=== PATIENT | male | born 1950 | race Caucasian/White ===

== ENCOUNTER → 2017-03-21 | Outpatient (CLI) | payer MEDICARE ==
[~2017-03-21] MED LIST: APIX5TAB PO; CALC500T37 PO; COMMODE 3-IN-11 MIS; CPMMACHINE; DILT120T PO; FISH1000 PO; GEMF600 PO; LISI-357 PO; MULT-207 PO; NORC5TAB PO; OMEGCAP PO; OMEP20TA39 PO; PANT20 PO; SAW450CA2 PO; SAWPOW; TAB-TAB PO; WALKER WHEELS/F1 MIS
== END ==
LOC: CPRE 10:48
PROVIDERS: ATTEND Orthopaedic Surgery
DX: Z01.818 Encounter for other preprocedural examination (principal)

== ENCOUNTER 2017-04-02 05:25 | Inpatient (IN) | payer MEDICARE ==
[~2017-04-02] VITALS: Ht 172.7 cm; Wt 79.1 kg
[~2017-04-02 05:25] MED LIST changes: -COMMODE 3-IN-11 MIS; -CPMMACHINE; -NORC5TAB PO; -WALKER WHEELS/F1 MIS
[2017-04-02] MEDS ORDERED: METOPROLOL TARTRATE 25 MG TAB PO PRN (06:00)
[2017-04-02] MEDS ORDERED: SODIUM CHLORID 0.9% 500 ML IV PRN (06:00)
[2017-04-02] MEDS ORDERED: POVIDONE IODINE 5% (ANTISEPSIS KIT) 4 APPLICATIONS EACH NARE PRN (06:00)
[2017-04-02] MEDS ORDERED: LACTATED RINGER'S 1000 ML IV PRN (06:00)
[2017-04-02] MEDS ORDERED: CHLORHEXIDINE GLUCONATE 2 % 1 PACK (2 CLOTHS) TOPICAL PRN (06:00)
[2017-04-02] MEDS ORDERED: ceFAZolin 2 GM PREMIX 50 ML IV SCH (06:00)
[2017-04-02] MEDS ORDERED: POVIDONE IODINE 7.5% SCRUB 118 ML BOTTLE TOPICAL SCH (06:00)
[2017-04-02] MEDS ORDERED: VANCOMYCIN 1000 MG/NS 250 ML (for <70 kg) IV SCH ×2 (06:00)
[2017-04-02] MEDS ORDERED: DEXAMETHASONE SOD PHOS 20 MG/5 ML VIAL IV SCH (06:15)
[2017-04-02] MEDS ORDERED: SODIUM CHLOR 0.9% 250 ML INJ 250 ML ONE (06:56)
--- NOTE | 2017-04-02 06:57 | HHI.DCPOC ---
Discharge Care Plan Diagnosis: (1) Primary localized osteoarthrosis, lower leg (2) Status post total knee replacement, left Your Health Problems Are: Difficulty with ADL Goals to Promote Your Health * To prevent worsening of your condition and complications * To maintain your health at the optimal level Directions to Meet Your Goals Take your medications as prescribed Follow your dietary instruction Follow activity as directed Keep your appointments as scheduled Take your immunizations and boosters as scheduled If your symptoms worsen call your PCP, if no PCP go to Urgent Care Center or Emergency Room Smoking is Dangerous to Your Health. Avoid second hand smoke Call the 24-hour hour crisis hotline for domestic abuse at José Manuel Maxwell Apr 02, 2017 06:57
--- NOTE | 2017-04-02 06:58 | HHI.FF ---
Face to Face Verification Diagnosis: (1) Primary localized osteoarthrosis, lower leg (2) Status post total knee replacement, left Physical Therapy Gait training, Transfer training, bed to chair Knee: Total knee Left LE Weight Bearing: WB as tolerated Left LE Range of Motion: Active ROM Nursing Nursing: Millicent teaching Additional Instructions First dressing change will be in the office I have seen patient Nba Dennis on 04/02/17. My clinical findings support the need for the requested home health care services because: Limited ability to care for self High risk of falls I certify that my clinical findings support that this patient is homebound because: Post-op weakness Unsteady gait/balance José Manuel Maxwell Apr 02, 2017 06:58
[2017-04-02] MEDS ORDERED: CPMMACHINE (07:00)
[2017-04-02] MEDS ORDERED: COMMODE 3-IN-11 MIS (07:00)
[2017-04-02] MEDS ORDERED: WALKER WHEELS/F1 MIS (07:00)
[2017-04-02] MEDS ORDERED: GENTAMICIN SULFATE 80 MG/2 ML VIAL ONE (07:06)
[2017-04-02] MEDS ORDERED: ROPIVACAINE 0.5% PF INJ 30 ML VIAL ONE (07:13)
[2017-04-02] MEDS ORDERED: ACETAMINOPHEN 1000 MG/100 ML 100 ML IV ONE (07:13)
[2017-04-02] MEDS ORDERED: BUPIVACAINE LIPOSOME PF 1.3% 20 ML VIAL ONE (07:14)
[2017-04-02] MEDS ORDERED: BUPIVACAINE HCL PF 0.5% 30 ML VIAL ONE (08:18)
[2017-04-02] MEDS ORDERED: ROPIVACAINE PERI-ARTICULAR INJECTION. P-ARTICULR SCH ×5 (08:30)
[2017-04-02] MEDS ORDERED: SODIUM CHLORIDE 0.9% IV SCH ×2 (08:30→11:30)
[2017-04-02] MEDS ORDERED: TRANEXAMIC ACID IV SCH ×2 (08:30→11:30)
--- NOTE | 2017-04-02 10:14 | PD.OP ---
cc: Dm Flores MD Operative Report Date of Surgery: Apr 02, 2017 Preoperative Diagnosis: left knee severe osteoarthritis Postoperative Diagnosis: Same Procedure: Left total knee arthroplasty Anesthesia: Gen. Surgeon: Dm Flores Supervisor Dimension Warehouse(s): GOLDIE Azevedo The surgical procedure was assisted by my Advanced Registered Nurse Practitioner. My PASSENGER SOLICITOR presence was necessary throughout this case for the manipulation and positioning of the surgical extremity. My PASSENGER SOLICITOR was assisting me throughout the duration of this procedure. The skill set of an Advance Registered Nurse Practitioner was medically necessary to complete this procedure. During the surgical case, the salesperson surgical appliances was working at the back table and the Advance Registered Nurse Practitioner was directly assisting me. Operation and Findings: IMPLANTS: DePuy Attune: Patella: size 32. Femur, posterior stabilized size 7. Tibia, rotating platform size 7. Tibial insert, rotating platform, posterior stabilized size 8 mm thickness. ESTIMATED BLOOD LOSS: 150 cc TOURNIQUET TIME: 40 minutes at 250 mmHg pressure. JUSTIFICATION FOR PROCEDURE: The patient has end-stage osteoarthritis to the knee. There is an attached conservative measures pathway form in the chart that describes the nonoperative measures that were undertaken prior to consideration of surgical management. The patient understood the risks and benefits of surgical management. See my office notes for further details PROCEDURE: The patient was brought back to the operative theatre. Adequate anesthesia was obtained. The patient received intravenous vancomycin and Ancef. The lower extremity was prepped and draped in the usual sterile fashion.The leg was exsanguinated, the tourniquet was raised. A standard anterior incision was performed followed by medial parapatellar arthrotomy was performed. End-stage arthritis was identified. Osteotomy of the patella was performed. We drilled holes for the patella. We trialed the patella component. We placed an intramedullary guide into the distal femur. We ultimately resected 14 mm off of the distal femur in 5 degrees of valgus. The remnants of the ACL and PCL were resected. Osteotomy of the proximal tibia was performed, resecting 5 mm off of the medial side. This was done with 3 degrees of posterior slope using an extramedullary guide. The distal end of the guide was placed in the mid aspect of the ankle. The femur was sized, and four chamfer cuts were completed in 3 of external rotation. We then cut the central box in the distal femur to replace the PCL. We resected the remnants of the menisci and removed osteophytes off of the femur and tibia. We then trialed the knee. We punched the tibia for the keel, and then used standard technique to cement in components. Excess cement was removed. We trialed the knee again and the final polyethylene thickness was chosen to provide extension to 0 degrees, and flexion of 140 degrees to gravity. The ligaments were appropriately balanced. Lateral release was necessary to obtain excellent patellofemoral tracking. The tourniquet was released and adequate hemostasis was obtained. An intra- articular injection of a ropivacaine cocktail was injected. The posterior knee was inspected for excess cement, which was removed. The final polyethylene was put into position after thorough irrigation. We then closed deep fascia with a #2 Stratafix followed by skin with 2-0 Vicryl followed by nicol. Postop plan is to weight-bear as tolerated. DVT prophylaxis will be performed with YAN Brennan, early mobilization, and resuming Eliquis at 2.5 mg by mouth twice a day initially with then resuming full outpatient dose of Eliquis per the patient. Dm Flores MD Apr 02, 2017 10:13
[2017-04-02] MEDS ORDERED: MAGNESIUM HYDROXIDE SUSP 30 ML CUP PO PRN (10:15)
[2017-04-02] MEDS ORDERED: Post-op Orders (for Pharmacy) MISC XX ONE (10:15)
[2017-04-02] MEDS ORDERED: ZOLPIDEM TARTRATE 5 MG TAB PO PRN (10:15)
[2017-04-02] MEDS ORDERED: NORC5TAB PO (10:15)
[2017-04-02] MEDS ORDERED: SODIUM CHLORIDE 0.9% FLUSH 5 ML FLUSH IVF PRN (10:15)
[2017-04-02] MEDS ORDERED: ONDANSETRON HCL 4 MG/2 ML VIAL IVP PRN (10:15)
[2017-04-02] MEDS ORDERED: BISACODYL 10 MG SUPP RECTAL PRN (10:15)
[2017-04-02] MEDS ORDERED: NALOXONE HCL 0.4 MG/ML AMP IV PUSH PRN (10:15)
[2017-04-02] MEDS ORDERED: ALUMINUM/MAGNESIUM/SIMETH 30 ML CUP PO PRN (10:15)
[2017-04-02] MEDS ORDERED: diphenhydrAMINE HCL 50 MG/ML VIAL IV PUSH PRN (10:15)
[2017-04-02] MEDS: SODIUM CHLOR 0.9% 1000 ML INJ 1,000 ML IV SCH ×2 (10:55→21:03)
[2017-04-02] MEDS ORDERED: MORPHINE SULFATE 2 MG/ML INJ IV PUSH PRN (11:00)
[2017-04-02] MEDS ORDERED: DO NOT ADM ANY ANTICOAGULANT DRUGS PRN (11:30)
[2017-04-02] MEDS ORDERED: *morphine SULFATE 8 MG/ML PERIprocedure ONLY ONE (11:30)
--- NOTE | 2017-04-02 11:58 | RADRPT ---
EXAM DATE/TIME: 04/02/2017 11:21 [facility] COMPARISON: No previous studies available for comparison. INDICATIONS : Post op left knee surgery. MEDICAL HISTORY : None. SURGICAL HISTORY : None. ENCOUNTER: Initial ACUITY: 1 day PAIN SCORE: 0/10 LOCATION: Left knee FINDINGS: AP and lateral views of the knee following arthroplasty reveals a prosthesis in anatomic alignment. F racture is not appreciated. Surgical drain is evident CONCLUSION: Status post total knee arthroplasty. Jarett Juárez MD FACR Board Certified Radiologist. This report was verified electronically.
[2017-04-02] MEDS ORDERED: ROCURONIUM INJ 50 MG/5 ML SYRINGE IV PUSH ONE (12:00)
[2017-04-02] MEDS ORDERED: NEOSTIGMINE 3 MG/3 ML SYR IV ONE (12:00)
[2017-04-02] MEDS ORDERED: LIDOCAINE HCL 1% PF 5 ML SYRINGE OTHER ONE (12:00)
[2017-04-02] MEDS ORDERED: MORPHINE SULFATE 4 MG/ML INJ IV ONE (12:00)
[2017-04-02] MEDS ORDERED: PROPOFOL 200 MG/20 ML AMP IV ONE (12:00)
[2017-04-02] MEDS ORDERED: GLYCOPYRROLATE 1 MG/5 ML SYRINGE IV PUSH ONE (12:00)
[2017-04-02] MEDS ORDERED: MIDAZOLAM HCL 2 MG/2 ML VIAL IV ONE (12:00)
[2017-04-02] MEDS ORDERED: ONDANSETRON HCL 4 MG/2 ML VIAL IV PUSH ONE (12:00)
[2017-04-02 13:55] VITALS: BP 111/65; PULSE 67; RESP 18; TEMP 97; O2SAT 96
--- NOTE | 2017-04-02 14:31 | PD.CONS ---
HPI Service [facility] Hospitalists Consult Requested By Primary Care Physician Iván Peres MD Diagnoses: History of Present Illness deniess recent symptoms left total knee today Review of Systems Except as stated in HPI: all other systems reviewed are Neg Past Family Social History Allergies: Coded Allergies: No Known Allergies (Verified Allergy, Unknown, 04/02/17) Past Medical History htn gerd afib chronic anticoagulation on eliquis- last dose was friday hepatitis A in 1978 Past Surgical History left total knee bilateral knee meniscus sx hernia sx 2006 left inguinal and umbilical Family History mother- heart issues maternal uncle angina Social History never smoked occasional drinker no drugs Physical Exam Vital Signs Vital Signs Date Time Temp Pulse Resp B/P (MAP) Pulse Ox O2 Delivery O2 Flow Rate FiO2 04/02/17 13:00 98.6 91 20 131/80 (97) 98 Nasal Cannula 2 04/02/17 12:00 78 20 130/79 (96) 98 04/02/17 11:45 75 10 129/80 (96) 96 04/02/17 11:30 83 12 150/84 (106) 92 04/02/17 11:15 81 10 139/79 (99) 96 04/02/17 11:00 80 12 132/75 (94) 100 Nasal Cannula 2 04/02/17 10:45 78 13 133/75 (94) 97 Simple Mask 6 04/02/17 10:38 98.1 77 13 132/68 (89) 97 Nasal Cannula 6 Physical Exam GENERAL: This is a well-nourished, well-developed patient, in no apparent distress. SKIN: No rashes, ecchymoses or lesions. Cool and dry. HEAD: Atraumatic. Normocephalic. No temporal or scalp tenderness. EYES: Pupils equal round and reactive. Extraocular motions intact. No scleral icterus. No injection or drainage. ENT: Nose without bleeding, purulent drainage or septal hematoma. Throat without erythema, tonsillar hypertrophy or exudate. Uvula midline. Airway patent. NECK: Trachea midline. No JVD or lymphadenopathy. Supple, nontender, no meningeal signs. CARDIOVASCULAR: Regular rate and rhythm without murmurs, gallops, or rubs. RESPIRATORY: Clear to auscultation. Breath sounds equal bilaterally. No wheezes , rales, or rhonchi. GASTROINTESTINAL: Abdomen soft, non-tender, nondistended. No hepato-splenomegaly , or palpable masses. No guarding. MUSCULOSKELETAL: Extremities without clubbing, cyanosis, or edema. No joint tenderness, effusion, or edema noted. No calf tenderness. Negative Homans sign bilaterally. NEUROLOGICAL: Awake and alert. Cranial nerves II through XII intact. Motor and sensory grossly within normal limits. Five out of 5 muscle strength in all muscle groups. Normal speech. Shayan Espino MD Apr 02, 2017 14:31
[2017-04-02 16:00] VITALS: BP 141/65; RESP 18; TEMP 95.7; O2SAT 99
[2017-04-02] MEDS: GEMFIBROZIL 600 MG TAB PO SCH (17:51)
[2017-04-02] MEDS: ACETAMINOPHEN/HYDROcodone 325 MG/5 MG TAB PO PRN ×2 (17:51→22:21)
[2017-04-02 19:00] VITALS: BP 109/71; PULSE 80; RESP 17; TEMP 96.4; O2SAT 100
[2017-04-02] MEDS: SODIUM CHLORIDE 0.9% FLUSH 5 ML FLUSH IVF SCH (21:04)
[2017-04-02] MEDS: DILTIAZEM HCL 60 MG TAB PO SCH (21:04)
[2017-04-03] VITALS: BP 118/69; PULSE 76; RESP 18; TEMP 96; O2SAT 99
[2017-04-03 04:00] VITALS: BP 118/69; PULSE 74; RESP 17; TEMP 96.1; O2SAT 97
[2017-04-03] MEDS: GEMFIBROZIL 600 MG TAB PO SCH ×2 (06:38→15:26)
[2017-04-03] MEDS: SODIUM CHLOR 0.9% 1000 ML INJ 1,000 ML IV SCH ×2 (06:40→16:00)
[2017-04-03] MEDS ORDERED: DEXAMETHASONE SOD PHOS 20 MG/5 ML VIAL IV ONE (07:45)
[2017-04-03 08:00] VITALS: BP 121/70; PULSE 68; RESP 16; TEMP 96.7; O2SAT 97
[2017-04-03] MEDS: DILTIAZEM HCL 60 MG TAB PO SCH (08:00)
[2017-04-03] MEDS: SODIUM CHLORIDE 0.9% FLUSH 5 ML FLUSH IVF SCH (08:00)
[2017-04-03] MEDS: ACETAMINOPHEN/HYDROcodone 325 MG/5 MG TAB PO PRN ×2 (08:40→15:26)
[2017-04-03 08:50] LABS: HEMATOCRIT 34.2 % (39.0-51.0); MEAN CELL VOLUME 92.2 FL (80.0-100.0); MEAN CORPUSCULAR HGB CONC 33.7 % (32.0-36.0); PLATELET COUNT 187 TH/MM3 (150-450); RED BLOOD COUNT 3.71 MIL/MM3 (4.50-5.90); RED CELL DISTRIBUTION WIDTH 12.7 % (11.6-17.2); REVIEW FLAG FINAL; WHITE BLOOD COUNT 12.1 TH/MM3 (4.0-11.0)
--- NOTE | 2017-04-03 08:50 | HHI.PR ---
Subjective Remarks Patient in the bed appears in nad. Pain is controlled by meds. No fever or chills. No n/v/d. Has constipation. Objective Vitals Vital Signs Date Time Temp Pulse Resp B/P (MAP) Pulse Ox O2 Delivery O2 Flow Rate FiO2 04/03/17 04:00 96.1 74 17 118/69 (85) 97 04/03/17 00:00 96.0 76 18 118/69 (85) 99 04/02/17 20:25 Nasal Cannula 2.00 04/02/17 19:00 96.4 80 17 109/71 (84) 100 04/02/17 16:00 95.7 18 141/65 (90) 99 04/02/17 13:55 97.0 67 18 111/65 (80) 96 04/02/17 13:00 98.6 91 20 131/80 (97) 98 Nasal Cannula 2 04/02/17 12:00 78 20 130/79 (96) 98 04/02/17 11:45 75 10 129/80 (96) 96 04/02/17 11:30 83 12 150/84 (106) 92 04/02/17 11:15 81 10 139/79 (99) 96 04/02/17 11:00 80 12 132/75 (94) 100 Nasal Cannula 2 04/02/17 10:45 78 13 133/75 (94) 97 Simple Mask 6 04/02/17 10:38 98.1 77 13 132/68 (89) 97 Nasal Cannula 6 I/O 04/02/17 04/02/17 04/02/17 04/03/17 04/03/17 04/03/17 07:00 15:00 23:00 07:00 15:00 23:00 Intake Total 1027.8 ml 1282 ml 925 ml Output Total 250 ml 500 ml 900 ml Balance 777.8 ml 782 ml 25 ml Intake Oral 120 ml 480 ml 480 ml IV Total 107.8 ml 802 ml 445 ml Other 800 ml Output Urine Total 100 ml 500 ml 900 ml Estimated Blood Loss 150 ml # Voids 0 # Bowel Movements 0 0 0 Imaging Last Impressions Knee X-Ray 04/02/17 1007 Signed Impressions: Service Date/Time: Sunday, April 02, 2017 11:21 - CONCLUSION: Status post total knee arthroplasty. Jarett Juárez MD Objective Remarks GENERAL: This is a well-nourished, well-developed patient, in no apparent distress. CARDIOVASCULAR: Regular rate and rhythm without murmurs, gallops, or rubs. RESPIRATORY: Clear to auscultation. Breath sounds equal bilaterally. No wheezes , rales, or rhonchi. GASTROINTESTINAL: Abdomen soft, non-tender, nondistended. No hepato-splenomegaly , or palpable masses. No guarding. MUSCULOSKELETAL: Left knee with minimal edema dressing c/d/i. Extremities without clubbing, cyanosis, or edema. No calf tenderness. Negative Homans sign bilaterally. NEUROLOGICAL: Awake and alert. Cranial nerves II through XII intact. Motor and sensory grossly within normal limits. Five out of 5 muscle strength in all muscle groups. Normal speech. A/P Assessment and Plan Left knee severe osteoarthritis S/p Left total knee arthroplasty buy Dr Aggarwal 04/02/17 Management per ortho Pain meds per pain scale. Chronic medical problems Afib, HLD, GERD, appears stable restart home meds. Anticoagulation per surgeon. Monitor closely. DVT ppx per surgeon . He is on Eliquis for Afib Melissa Grewal MD Apr 03, 2017 08:50
[2017-04-03] MEDS ORDERED: NON-FORMULARY DRUG (Calcium Ascorbate 500 MG) PO SCH (09:00)
[2017-04-03] MEDS ORDERED: PANTOPRAZOLE SOD 20 MG DELAYED RELEASE TAB PO SCH (09:00)
[2017-04-03] MEDS ORDERED: APIXABAN 2.5 MG TABLET PO SCH (09:00)
[2017-04-03] MEDS ORDERED: PNEUMOCOCCAL POLYVALENT INJ 25 MCG/0.5 ML SYR IM ONE (10:00)
[2017-04-03 12:00] VITALS: BP 121/69; PULSE 58; RESP 16; TEMP 97.2; O2SAT 99
--- NOTE | 2017-04-03 12:14 | PD.ORT.PN ---
Subjective Post Op Day #: 1 Subjective Remarks Patient is OOB in chair with minimal pain to the left knee. The patient has been ambulatory and feels he is feeling well enough to go home today with home health. Objective Vitals Vital Signs Date Time Temp Pulse Resp B/P (MAP) Pulse Ox O2 Delivery O2 Flow Rate FiO2 04/03/17 08:00 96.7 68 16 121/70 (87) 97 04/03/17 04:00 96.1 74 17 118/69 (85) 97 04/03/17 00:00 96.0 76 18 118/69 (85) 99 04/02/17 20:25 Nasal Cannula 2.00 04/02/17 19:00 96.4 80 17 109/71 (84) 100 04/02/17 16:00 95.7 18 141/65 (90) 99 04/02/17 13:55 97.0 67 18 111/65 (80) 96 04/02/17 13:00 98.6 91 20 131/80 (97) 98 Nasal Cannula 2 I/O 04/02/17 04/02/17 04/02/17 04/03/17 04/03/17 04/03/17 07:00 15:00 23:00 07:00 15:00 23:00 Intake Total 1027.8 ml 1282 ml 925 ml Output Total 250 ml 500 ml 900 ml Balance 777.8 ml 782 ml 25 ml Intake Oral 120 ml 480 ml 480 ml IV Total 107.8 ml 802 ml 445 ml Other 800 ml Output Urine Total 100 ml 500 ml 900 ml Estimated Blood Loss 150 ml # Voids 0 # Bowel Movements 0 0 0 Result Diagram: 04/03/17 0635 Procedures Left TKA Objective Remarks The patient's dressing is C/D/I. EHL/TA/G intact. 2+ pedal pulse. Calf is soft and nontender. Minimal swelling. + SILT. Assessment & Plan Ortho Post Op Day #: 1 Problem List: Assessment and Plan POD #1: Left TKA 1. WBAT LLE 2. Eliquis 2.5 mg BID today and then transition back to Eliquis 5 mg BID starting tomorrow 3. Ice to the left knee PRN 4. Maintain dressing until f/u in the office. 5. Stable for discharge home with home health today per ortho 6. F/U in the office with Dr. Flores or GOLDIE Schaefer as previously scheduled. José Manuel Maxwell Apr 03, 2017 12:14
[2017-04-03] MEDS ORDERED: MULTIVITAMINS/MINERALS THERAPEUTIC TAB PO SCH (21:00)
[2017-04-03] MEDS ORDERED: DOCUSATE SODIUM 100 MG CAP PO SCH (21:00)
== END 2017-04-03 16:43 | disposition home health service (06) | DRG 470 ==
LOC: HSDI 05:25 → N06A 14:01
PROVIDERS: ADMIT Orthopaedic Surgery; ATTEND Orthopaedic Surgery
PROC: 0SRD0J9 Replacement of Left Knee Joint with Synthetic Substitute, Cemented, Open Approach (ICD-10-PCS; principal; 2017-04-02 08:30)
DX: M17.12 Unilateral primary osteoarthritis, left knee (principal); I48.91 Unspecified atrial fibrillation; I10 Essential (primary) hypertension; K21.9 Gastro-esophageal reflux disease without esophagitis; E78.5 Hyperlipidemia, unspecified; K59.00 Constipation, unspecified; Z79.01 Long term (current) use of anticoagulants; Z23 Encounter for immunization
CPT/HCPCS: 73560; 85027; 86850; 86900; 86901; 90471; 90732; 94150; C9290; G0009; J0131; J0690; J0735; J1100; J1580; J1885; J2250; J2270; J2405; J2710; J2795; J3010; J3370; J7030; J7050; J7120

== ENCOUNTER 2018-03-04 06:55 | Inpatient (IN) ==
[2018-03-04] MEDS ORDERED: Dexamethasone Inj 20 MG/5 ML Vial IV.PUSH ONE (07:21)
[2018-03-04] MEDS ORDERED: Metoprolol Tartrate 25 MG Tablet PO ONE (07:28)
[2018-03-04] MEDS ORDERED: Chlorhexidine Gluconate 2% 1 Pack (2 Cloths) TOPICAL ONE (07:28)
[2018-03-04] MEDS ORDERED: Chlorhexidine 4% Topical 120 APPLIC/120 ML Bottle TOPICAL SCH (07:30)
[2018-03-04] MEDS ORDERED: Sodium Chlor 0.9% Inj 500 ML IV.SIG SCH (08:00)
[2018-03-04] MEDS ORDERED: Vancomycin Inj 1,000 MG in Sodium Chlor 0.9% Inj 250 ML IV.SIG SCH (08:00)
[2018-03-04] MEDS ORDERED: ceFAZolin 2 GM Premix Inj 2 GM/50 ML PIGGYBACK IV.SIG SCH (08:00)
[2018-03-04] MEDS ORDERED: Bupivacaine Liposomal PF 1.3% Inj 20 ML Vial ONE (08:03)
[2018-03-04] MEDS ORDERED: Bupivacaine/Dextrose 0.75% Inj 2 ML Ampul ONE (09:32)
[2018-03-04] MEDS ORDERED: Propofol Inj 500 MG/50 ML Vial ONE (09:39)
[2018-03-04] MEDS ORDERED: Glycopyrrolate Inj 1 MG/5 ML Syringe IV.PUSH ONE (09:42)
[2018-03-04] MEDS ORDERED: Phenylephrine/NS 1000 MCG/10ML Syringe IV.PUSH ONE (09:42)
[2018-03-04] MEDS ORDERED: Lidocaine PF 1% Inj 5 ML Syringe OTHER ONE (09:42)
[2018-03-04] MEDS ORDERED: Neostigmine Inj 5 MG/5 ML Syringe IV.PUSH ONE (09:42)
[2018-03-04] MEDS ORDERED: TRANEXAMIC ACID IV.SIG SCH ×2 (10:00→13:00)
[2018-03-04] MEDS ORDERED: Sodium Chlor 0.9% Inj 73.07 ML, Ropivacaine 0.5% PF Inj 24.63 ML, Ketorolac Inj 30 MG, ... P-ARTICULR SCH ×5 (10:00)
[2018-03-04] MEDS ORDERED: SODIUM CHLOR 0.9% IV.SIG SCH ×2 (10:00→13:00)
[2018-03-04] MEDS ORDERED: Post-op Orders (for Pharmacy) OTHER STA (11:43)
[2018-03-04] MEDS ORDERED: Bisacodyl 10 MG Supp RECTAL PRN (11:43)
[2018-03-04] MEDS ORDERED: Morphine Sulfate Inj 2 MG/ML Vial IV.PUSH PRN (11:43)
[2018-03-04] MEDS ORDERED: Aluminum/Magnesium/Simethacone Susp 30 ML UDC PO PRN (11:43)
--- NOTE | 2018-03-04 11:48 | P.OP ---
- Preoperative Diagnosis (1) Osteoarthritis of right knee - Postoperative Diagnosis (1) Osteoarthritis of right knee Date of procedure: 03/04/18 Procedure: Right total knee arthroplasty [facility] Surgeon: Dm Flores MD Quality Project Manager: GOLDIE Azevedo The surgical procedure was assisted by my Advanced Registered Nurse Practitioner. My HR PAYROLL COORDINATOR presence was necessary throughout this case for the manipulation and positioning of the surgical extremity. My HR PAYROLL COORDINATOR was assisting me throughout the duration of this procedure. The skill set of an Advance Registered Nurse Practitioner was medically necessary to complete this procedure. During the surgical case, the neurodiagnostic technician was working at the back table and the Advance Registered Nurse Practitioner was directly assisting me. Operation and Findings: IMPLANTS: DePuy Attune: Patella: size 35. Femur, posterior stabilized size 7. Tibia, rotating platform size 7. Tibial insert, rotating platform, posterior stabilized size 5 mm thickness. ESTIMATED BLOOD LOSS: 150 cc TOURNIQUET TIME: 44 minutes at 250 mmHg pressure. JUSTIFICATION FOR PROCEDURE: The patient has end-stage osteoarthritis to the knee. There is an attached conservative measures pathway form in the chart that describes the nonoperative measures that were undertaken prior to consideration of surgical management. The patient understood the risks and benefits of surgical management. See my office notes for further details PROCEDURE: The patient was brought back to the operative theatre. Adequate anesthesia was obtained. The patient received intravenous vancomycin and Ancef. The lower extremity was prepped and draped in the usual sterile fashion.The leg was exsanguinated, the tourniquet was raised. A standard anterior incision was performed followed by medial parapatellar arthrotomy was performed. End-stage arthritis was identified. Osteotomy of the patella was performed. We drilled holes for the patella. We trialed the patella component. We placed an intramedullary guide into the distal femur. We ultimately resected 13 mm off of the distal femur in 5 degrees of valgus. The remnants of the ACL and PCL were resected. Osteotomy of the proximal tibia was performed, resecting 7 mm off of the medial side. This was done with 3 degrees of posterior slope using an extramedullary guide. The distal end of the guide was placed in the mid aspect of the ankle. The femur was sized, and four chamfer cuts were completed in 3 of external rotation. We then cut the central box in the distal femur to replace the PCL. We resected the remnants of the menisci and removed osteophytes off of the femur and tibia. We then trialed the knee. We punched the tibia for the keel, and then used standard technique to cement in components. Excess cement was removed. We trialed the knee again and the final polyethylene thickness was chosen to provide extension to 0 degrees, and flexion of 140 degrees to gravity. The ligaments were appropriately balanced. Lateral release was necessary to obtain excellent patellofemoral tracking. The tourniquet was released and adequate hemostasis was obtained. An intra- articular injection of a ropivacaine cocktail was injected. The posterior knee was inspected for excess cement, which was removed. The final polyethylene was put into position after thorough irrigation. We then closed deep fascia with a #2 Stratafix followed by skin with 2-0 Vicryl followed by Dermabond dressing. Postop plan is to weight-bear as tolerated. DVT prophylaxis will be performed with SCDs, YAN hurtado, early mobilization, and Eliquis 2.5 twice daily while in the hospital with resumption of outpatient dose of 5 mg twice daily after discharge.
[2018-03-04] MEDS ORDERED: fentaNYL Citrate Inj 100 MCG/2 ML Ampul ONE (12:14)
--- NOTE | 2018-03-04 12:25 | P.DCO ---
- Physical Therapy Physical Therapy: Gait training, Transfer training, bed to chair Knee: Total knee Right Lower Extremity Weight Bearing: Weight bearing as tolerated Right Lower Extremity Range of Motion: Active ROM - Nursing Dressing changes: Do not change dressing Additional instructions: First dressing change in the office - Certification Need for Home Health services: I have seen patient Nba Dennis on 03/04/18. My clinical findings support the need for the requested home health care services because: Need for Home Health Services: Limited ability to care for self, High risk of falls Homebound Certification: I certify that my clinical findings support that this patient is homebound because: Homebound Certification: Post-op weakness, Unsteady gait/balance
[2018-03-04] MEDS: Sod Chloride 0.9% Inj 1,000 ML IV.CONT SCH (12:33)
[2018-03-04] MEDS ORDERED: *morphine SULFATE 4 MG/ML PERIprocedure ONLY ONE (13:02)
--- NOTE | 2018-03-04 13:05 | XR ---
EXAM DATE: 03/04/2018 11:43 AM EDT AGE/SEX: 67 years / Male INDICATIONS: Post op right total knee replacement. CLINICAL DATA: This is the patient's initial encounter. Patient reports that signs and symptoms have been present for 1 day and indicates a pain score of 5/10. MEDICAL/SURGICAL HISTORY: None. None. COMPARISON: No prior exams available for comparison. FINDINGS: A total knee arthroplasty is present. The tibial and femoral components appear well seated. Prominent subcutaneous air is noted. No fractures. CONCLUSION: Postop right knee arthroplasty. Electronically signed by: Chris Strauss MD 03/04/2018 1:03 PM EDT
[2018-03-04] MEDS ORDERED: Atenolol 25 MG Tablet PO SCH (21:00)
[2018-03-04] MEDS ORDERED: Zolpidem Tartrate 5 MG Tablet PO PRN (21:00)
[2018-03-04] MEDS: Senna/Docusate Sodium 8.6/50 MG Tablet PO SCH (21:13)
[2018-03-04] MEDS: Multivitamin/Minerals Therapeutic Tablet PO SCH (21:14)
[2018-03-05] MEDS: Sod Chloride 0.9% Inj 1,000 ML IV.CONT SCH (05:34)
[2018-03-05 07:13] LABS: Hematocrit 32.8 % (39.0-51.0); Hemoglobin 11.1 gm/dL (13.0-17.0)
--- NOTE | 2018-03-05 07:14 | P.PNOP ---
Subjective Interval history: The patient is resting comfortably in bed in no acute distress. The patient reports mild discomfort to the right knee. The patient states he does want to go home today with home health. Physical Exam Vital signs: Vital Signs 03/04/18 07:59 03/04/18 08:22 03/04/18 12:10 Temperature 98.8 F 97.5 F L Pulse Rate 45 L 42 L 52 L Respiratory Rate 20 14 Blood Pressure 116/59 L 112/60 Pulse Oximetry 99 98 97 03/04/18 12:25 03/04/18 12:40 03/04/18 13:00 Temperature Pulse Rate 68 68 58 L Respiratory Rate 20 20 18 Blood Pressure 102/53 L 119/62 119/58 L Pulse Oximetry 98 98 96 03/04/18 14:00 03/04/18 15:00 03/04/18 16:00 Temperature Pulse Rate 58 L 58 L 71 Respiratory Rate 18 18 20 Blood Pressure 110/60 104/56 L 113/60 Pulse Oximetry 96 96 99 03/04/18 17:00 03/04/18 18:00 03/04/18 20:53 Temperature 98.0 F 97.5 F L Pulse Rate 73 82 87 Respiratory Rate 20 20 18 Blood Pressure 107/56 L 116/63 108/59 L Pulse Oximetry 97 96 96 03/04/18 22:58 03/05/18 03:30 Temperature 97.9 F 97.8 F Pulse Rate 69 63 Respiratory Rate 18 18 Blood Pressure 100/55 L 102/58 L Pulse Oximetry 95 96 Intake & Output 03/04/18 03/05/18 03/05/18 18:59 06:59 18:59 Intake Total 2065.76 / 2065.76 460 / 460 Output Total 250 / 250 Balance 1815.76 / 1815.76 460 / 460 Weight 78.471 kg 78.47 kg Intake: IV 1615.76 / 1615.76 100 / 100 LR 1000 mL Inj 1,000 ML @ 30 1000 / 1000 mls/hr IV.SIG .Q24H PRATIMA Rx#: [id number] Cyklokapron Inj 788 MG In NS 215.76 / 215.76 Inj 100 ML @ 200 mls/hr IV.SIG SOLDERER DIPPER PRATIMA Rx#:[id number] Vancomycin Inj 1,000 MG In NS 250 / 250 Inj 250 ML @ 250 mls/hr IV.SIG SOLDERER DIPPER PRATIMA Rx#:[id number] Ancef 2 GM Premix Inj 2 gm In 50 / 50 50 ml @ 100 mls/hr IV.SIG SOLDERER DIPPER PRATIMA Rx#:[id number] Ancef Inj 1,000 MG In NS Inj 100 / 100 100 / 100 100 ML @ 200 mls/hr IV.SIG Q6H PRATIMA Rx#:[id number] Oral 450 / 450 360 / 360 Output: Urine 100 / 100 Estimated Blood Loss 150 / 150 Other: # Voids 2 Date of Last Bowel Movement 03/03/18 # Bowel Movements 0 Weight On Admission 78.8 kg Narrative: The patient's dressing is clean, dry, and intact. EHL/TA/G are intact. 2+ pedal pulse. The patient's calf is soft and nontender. Sensation is intact to light touch distally. Results - Labs CBC & Chem 7: 03/05/18 06:41 Laboratory Results - last 24 hr 03/04/18 07:59 Blood Type A Positive Antibody Screen Negative - Imaging Impressions Knee X-Ray 03/04/18 11:43 CONCLUSION: Postop right knee arthroplasty. - Procedures Right total knee arthroplasty Assessment and Plan - Problem List (1) Status post total knee replacement, right Code(s): Z96.651 - Presence of right artificial knee joint Status: Acute (2) Primary localized osteoarthritis of right knee Code(s): M17.11 - Unilateral primary osteoarthritis, right knee Status: Acute - Assessment and Plan POD #1: [Right] total knee arthroplasty 1. Weightbearing as tolerated on [right] lower extremity. 2. Eliquis 2.5 mg twice a day while in the hospital and then resume Eliquis 5 mg twice a day when discharged home for DVT prophylaxis. 3. Ice as needed for swelling. 4. Stable per ortho for discharge to home health today. 5. The patient will follow up with Dr. Flores and/or GOLDIE Schaefer as previously scheduled.
--- NOTE | 2018-03-05 07:16 | P.DS ---
Date of admission: 03/04/18 06:55 Primary care physician: Iván Peres MD Attending physician on discharge: Dm Flores Anticipated date of discharge: 03/05/18 Brief History from admission: The patient was admitted to the hospital for severe osteoarthritis of the right knee to have a right total knee arthroplasty. DS: Diagnosis - Discharge Diagnosis (1) Status post total knee replacement, right Status: Acute (2) Primary localized osteoarthritis of right knee Status: Acute DS: Summary Hospital Course: The patient was admitted to the hospital for severe osteoarthritis of the [right ] knee to have a [right] total knee arthroplasty. The patient's surgery went well with no complication. The patient is on a [regular] diet. The patient's DVT prophylaxis includes use of Eliquis 2.5 mg twice a day while in the hospital and then resume his normal dose of Eliquis 5 mg twice a day when discharged home. The patient is weightbearing as tolerated. The patient was discharged [home with home health] and will follow up in the office with Dr. Flores and/or GOLDIE Schaefer as previously scheduled. - Time Spent with Patient Total time spent providing and/or coordinating discharge services: Greater than 30 minutes - Quality: VTE Deep Vein Thrombosis/Pulmonary Embolism Present on Admission: No Exam Vital signs: Vital Signs 03/04/18 07:59 03/04/18 08:22 03/04/18 12:10 Temperature 98.8 F 97.5 F L Pulse Rate 45 L 42 L 52 L Respiratory Rate 20 14 Blood Pressure 116/59 L 112/60 Pulse Oximetry 99 98 97 03/04/18 12:25 03/04/18 12:40 03/04/18 13:00 Temperature Pulse Rate 68 68 58 L Respiratory Rate 20 20 18 Blood Pressure 102/53 L 119/62 119/58 L Pulse Oximetry 98 98 96 03/04/18 14:00 03/04/18 15:00 03/04/18 16:00 Temperature Pulse Rate 58 L 58 L 71 Respiratory Rate 18 18 20 Blood Pressure 110/60 104/56 L 113/60 Pulse Oximetry 96 96 99 03/04/18 17:00 03/04/18 18:00 03/04/18 20:53 Temperature 98.0 F 97.5 F L Pulse Rate 73 82 87 Respiratory Rate 20 20 18 Blood Pressure 107/56 L 116/63 108/59 L Pulse Oximetry 97 96 96 03/04/18 22:58 03/05/18 03:30 Temperature 97.9 F 97.8 F Pulse Rate 69 63 Respiratory Rate 18 18 Blood Pressure 100/55 L 102/58 L Pulse Oximetry 95 96 Intake & Output 03/04/18 03/05/18 03/05/18 18:59 06:59 18:59 Intake Total 2065.76 / 2065.76 460 / 460 Output Total 250 / 250 Balance 1815.76 / 1815.76 460 / 460 Weight 78.471 kg 78.47 kg Intake: IV 1615.76 / 1615.76 100 / 100 LR 1000 mL Inj 1,000 ML @ 30 1000 / 1000 mls/hr IV.SIG .Q24H PRATIMA Rx#: [id number] Cyklokapron Inj 788 MG In NS 215.76 / 215.76 Inj 100 ML @ 200 mls/hr IV.SIG [employer] [facility]IMA Rx#:[id number] Vancomycin Inj 1,000 MG In NS 250 / 250 Inj 250 ML @ 250 mls/hr IV.SIG [employer] [facility]A Rx#:[id number] Ancef 2 GM Premix Inj 2 gm In 50 / 50 50 ml @ 100 mls/hr IV.SIG [employer] [facility] Rx#:[id number] Ancef Inj 1,000 MG In NS Inj 100 / 100 100 / 100 100 ML @ 200 mls/hr IV.SIG Q6H [facility] Rx#:[id number] Oral 450 / 450 360 / 360 Output: Urine 100 / 100 Estimated Blood Loss 150 / 150 Other: # Voids 2 Date of Last Bowel Movement 03/03/18 # Bowel Movements 0 Weight On Admission 78.8 kg Narrative: The patient's dressing is clean, dry, and intact. EHL/TA/G are intact. 2+ pedal pulse. The patient's calf is soft and nontender. Sensation is intact to light touch distally. Results Procedures completed during hospitalization: Right total knee arthroplasty Labs on day of discharge: Labs from last 24 hours 03/05/18 03/04/18 06:41 07:59 Hgb 11.1 L Hct 32.8 L Blood Type A Positive Antibody Screen Negative - Impressions ITS Impressions Knee X-Ray 03/04/18 11:43 CONCLUSION: Postop right knee arthroplasty. Discharge Plan - Discharge Disposition Patient Disposition: W/Home Health Service - Discharge Condition Condition: Stable - Discharge Order Discharge Orders: Discharge Order (Routine); Ordered 03/04/18 Ordered By: José Manuel Maxwell - Discharge Details Anticipated Discharge Date: 03/05/18 - Physicians Team Primary Care Provider: Iván Peres Attending Provider: Dm Flores - Rxs /Orders / Referrals /Forms Prescriptions: Continue apixaban [Eliquis] 5 mg Tablet 5 mg PO BID atenolol 25 mg Tablet 25 mg PO HS gemfibrozil 600 mg Tablet 600 mg PO DAILY lisinopril 20 mg Tablet 20 mg PO DAILY [id number] K [Adults Multivitamin] 18 mg iron-400 mcg-25 mcg Tablet 1 tab PO DAILY omeprazole 20 mg Capsule,Delayed Release(Dr/Ec) 20 mg PO DAILY Discontinued saw palmetto 500 mg Capsule 500 mg PO DAILY Ambulatory Orders / Order Sets / DME: Adjustable Commode 3-in-1 (1 each) (Routine) Location: Determined by Patient Ordered By: José Manuel Maxwell CPM - Continuous Passive Motion Machine (1 each) (Routine) Location: Determined by Patient Ordered By: José Manuel Maxwell Walker With Front Wheels (1 each) (Routine) Location: Determined by Patient Ordered By: José Manuel Maxwell Referrals: Dm Flores MD [Physician] - See Instructions (F/U in the office as previously scheduled with Dr. Flores or Charly Maxwell, LABEL CUTTER.) Iván Peres MD [Primary Care Provider] - See Instructions - Discharge Instructions Patient Printed Instructions: Knee Replacement (DC)
[2018-03-05] MEDS ORDERED: Dexamethasone Inj 20 MG/5 ML Vial IV.PUSH ONE (08:00)
[2018-03-05 08:41] VITALS: BP 119/61; PULSE 66; RESP 17; TEMP 98.3; O2SAT 100
[2018-03-05] MEDS: Senna/Docusate Sodium 8.6/50 MG Tablet PO SCH (08:49)
[2018-03-05] MEDS: Multivitamin/Minerals Therapeutic Tablet PO SCH (08:49)
[2018-03-05] MEDS ORDERED: Lisinopril 20 MG Tablet PO SCH (09:00)
[2018-03-05] MEDS ORDERED: Gemfibrozil 600 MG Tablet PO SCH (09:00)
[2018-03-05] MEDS ORDERED: Pantoprazole Sodium 20 MG DR Tablet PO SCH (09:00)
== END 2018-03-05 12:10 | disposition home health service (06) ==
LOC: HSDI 06:55 → N06 18:18
PROVIDERS: ADMIT Orthopaedic Surgery; ATTEND Orthopaedic Surgery